=== PATIENT | male | born 1945 | race Caucasian/White ===

== ENCOUNTER 2019-04-05 11:28 | Emergency (ER) | payer MEDICARE ==
[~2019-04-05] VITALS: Ht 185.4 cm; Wt 76.0 kg
[2019-04-05] MEDS ORDERED: CEPH500C5 PO (13:37)
[2019-04-05 14:01] VITALS: BP 144/87
== END 2019-04-05 14:00 | disposition home or self-care (01) ==
LOC: ER 11:29
DX: S69.91XA Unspecified injury of right wrist, hand and finger(s), initial encounter (principal); L03.011 Cellulitis of right finger; E11.622 Type 2 diabetes mellitus with other skin ulcer; L98.499 Non-pressure chronic ulcer of skin of other sites with unspecified severity; W49.04XA Ring or other jewelry causing external constriction, initial encounter; Y93.89 Activity, other specified; Y92.89 Other specified places as the place of occurrence of the external cause; Y99.8 Other external cause status
CPT/HCPCS: 73140; 99284